=== PATIENT | female | born 1950 ===

== ENCOUNTER 2018-07-04 10:59 | Emergency (ER) | payer OTHER ==
[~2018-07-04] VITALS: Ht 157.5 cm; Wt 65.8 kg
[2018-07-04] MEDS ORDERED: ASPIR 8181 MG (11:49)
[2018-07-04] MEDS ORDERED: ENALAPRIL MALEA20 MG (11:49)
== END 2018-07-04 21:37 | disposition home or self-care (01) ==
LOC: ER 10:59 → CPU-OBS 11:15 → ER 11:15 → CPU-OBS 21:37 → ER 07-05 01:31
DX: I48.91 Unspecified atrial fibrillation (principal); R07.89 Other chest pain